=== PATIENT | male | born 1960 | race Caucasian/White ===

== ENCOUNTER 2020-06-11 08:57 | Emergency (ER) | payer MEDICAID ==
[~2020-06-11] VITALS: Ht 170.2 cm; Wt 81.6 kg
[2020-06-11 08:57] VITALS: BP_SYST 138
[2020-06-11 10:01] VITALS: BP_SYST 138
== END 2020-06-11 10:05 | disposition home or self-care (01) ==
LOC: SED 08:57
DX: Z13.30 Encounter for screening examination for mental health and behavioral disorders, unspecified (principal)
CPT/HCPCS: 99283